=== PATIENT | male | born 1955 | race Caucasian/White ===

== ENCOUNTER 2021-11-17 20:38 | Observation (INO) ==
--- NOTE | 2021-11-17 20:51 | Emergency Department Note ---
History of Present Illness General Chief complaint: Chest Pain Time Seen by Provider: 11/17/21 20:41 Source: patient and EMS Mode of arrival: EMS History of Present Illness Provider complaint: Chest pain Onset (ago): day(s) Location: chest Radiation: non-radiation Severity: moderate Pain Consistency: + intermittent and + now resolved Quality: + other (Pressure) Relieved By: + medication (Nitroglycerin) and + rest Exacerbated By: + other (Exertion) Associated symptoms: + chest pain, + diaphoresis and + shortness of breath; no cough, no fever/chills, no malaise or no nausea/vomiting This is a 65-year-old male with a history of coronary artery disease and status post CABG presenting with chest pain starting 2 days ago. It started when he was carrying firewood into the basement. He started having pressure in the mid dle of his chest. It was associated with shortness of breath and diaphoresis. He rested and his chest pain went away. He states that his pain does not radiate. He has had it intermittently throughout the past 2 days. He states is worse when he exerts himself such as climbing stairs. It is better when he rests. Today he felt lightheaded with the chest pain and called EMS. He did take an aspirin earlier today. EMS gave him 1 sublingual nitroglycerin which resolved his chest pain. He currently feels lightheaded but otherwise has no symptoms. He denies any fever, cough or cold symptoms, abdominal pain, vomiting, diarrhea, urinary symptoms or pain or swelling to the legs. He did have a catheterization approximately 3 weeks ago to be evaluated for aortic valve replacement. He is scheduled for a consultation in [facility] sometime in the future. Home Medications Medication Instructions Recorded Confirmed Type aspirin 81 mg chewable tablet 81 mg PO DAILY 11/04/18 11/17/21 History (Aspirin Childrens) atorvastatin 80 mg tablet (Lipitor) 80 mg PO HS 11/04/18 11/17/21 History fluticasone furoate 100 1 puff INHALATION DAILY 11/04/18 11/17/21 History mcg-vilanterol 25 mcg/dose inhalation powder (Breo Ellipta) insulin glargine 100 unit/mL 30 units SUBCUT HS 11/04/18 11/17/21 History subcutaneous solution (Lantus U-100 Insulin) levothyroxine 75 mcg tablet 75 mcg PO DAILY 11/04/18 11/17/21 History (Synthroid) lisinopril 5 mg tablet (Zestril) 5 mg PO DAILY 11/04/18 11/17/21 History metoprolol succinate 50 mg 50 mg PO DAILY 11/04/18 11/17/21 History tablet,extended release 24 hr (Toprol XL) sildenafil 50 mg tablet 25 mg PO DIRECTED PRN 11/04/18 11/17/21 History empagliflozin 25 mg tablet 25 mg PO DAILY 05/23/21 11/17/21 History (Jardiance) famotidine 20 mg tablet 20 mg PO BID 05/23/21 11/17/21 History metformin 500 mg tablet,extended 1,000 mg PO BID 05/23/21 11/17/21 History release 24 hr Allergies Allergy/AdvReac Type Severity Reaction Status Date / Time aspirin AdvReac Intermediate platelets Verified 11/17/21 21:46 drop fexofenadine [From Karlie] AdvReac Intermediate NOSE BLEEDS Verified 11/17/21 21:46 Past Med/Surg History Medical History CAD (coronary artery disease) CKD (chronic kidney disease), stage III Diabetes mellitus, type II HLD (hyperlipidemia) Hypothyroidism KIMBERLYN (obstructive sleep apnea) PVD (peripheral vascular disease) s/p R femoral stent Tobacco use Surgical History Hx of CABG [facility] [place] [place] [facility] [place] History Other Coronary heart disease Diabetes Social History Smoking Status: Current every day smoker Tobacco Type: Cigarettes Cigarettes Per Day: 20; Hx Alcohol Use: No Hx Substance Use: No Preferred Language: Occitan Communication Ability: Effective Public Health Microbiologist Required: No Beliefs That Will Affect Care: None Current Living Situation: Spouse Feels Safe at Home: Yes Assistive Devices: Denture - Upper, Denture - Lower, Glasses and Hearing Aid - Bilateral Review of Systems See HPI for pertinent positives & negatives. and A total of 10 systems reviewed and were otherwise negative Physical Exam Vital Signs Vital Signs - 24 hr 11/17/21 20:46 11/17/21 20:49 11/17/21 20:50 Temperature Temperature Source Pulse Rate 60 59 L Pulse Rate from SpO2 Sensor 59 L Respiratory Rate 21 13 Respiratory Effort / Characteristics Respiratory Depth Respiratory Pattern Blood Pressure 102/54 L Blood Pressure Mean 70 Pulse Oximetry 94 Oxygen Delivery Method Room Air Sepsis Recent Fever Within 48 Hours Sepsis New/Unexplained Change in Mental Status Sepsis Action Taken by Nursing 11/17/21 20:52 11/17/21 21:00 11/17/21 21:15 Temperature 36.8 C Temperature Source Oral Pulse Rate 58 L 66 59 L Pulse Rate from SpO2 Sensor 66 59 L Respiratory Rate 18 17 16 Respiratory Effort / Characteristics Non-Labored Respiratory Depth Normal Respiratory Pattern Regular Blood Pressure 102/54 L Blood Pressure Mean 70 Pulse Oximetry 96 97 96 Oxygen Delivery Method Room Air Sepsis Recent Fever Within 48 Hours No Sepsis New/Unexplained Change in Mental Status No Sepsis Action Taken by Nursing No Action Required 11/17/21 21:30 11/17/21 21:45 11/17/21 22:00 Temperature Temperature Source Pulse Rate 59 L 57 L 60 Pulse Rate from SpO2 Sensor 59 L 57 L 60 Respiratory Rate 14 20 21 Respiratory Effort / Characteristics Respiratory Depth Respiratory Pattern Blood Pressure Blood Pressure Mean Pulse Oximetry 95 95 98 Oxygen Delivery Method Sepsis Recent Fever Within 48 Hours Sepsis New/Unexplained Change in Mental Status Sepsis Action Taken by Nursing 11/17/21 22:28 11/17/21 22:30 Temperature Temperature Source Pulse Rate 56 L 54 L Pulse Rate from SpO2 Sensor 57 L 54 L Respiratory Rate 14 15 Respiratory Effort / Characteristics Respiratory Depth Respiratory Pattern Blood Pressure 121/65 116/79 Blood Pressure Mean 83 91 Pulse Oximetry 97 93 Oxygen Delivery Method Sepsis Recent Fever Within 48 Hours Sepsis New/Unexplained Change in Mental Status Sepsis Action Taken by Nursing Constitutional: Vital signs reviewed. Eyes: Pupils are equal round reactive to light. Conjunctiva are noninjected. ENT: Pharynx is clear without erythema or exudate. Mucous membranes are moist. Neck supple without meningeal signs. Respiratory: Clear to auscultation bilaterally. Breath sounds are equal bilaterally. Cardiovascular: Regular rate and rhythm. No rubs or gallops. Systolic murmur present. GI: Soft, nondistended and nontender. Bowel sounds are present. Musculoskeletal: No peripheral edema. No lower extremity tenderness. Integumentary: No cyanosis. or jaundice. Neurological: The patient is awake and alert. No focal deficits. Psychiatric: Normal affect. Not anxious appearing. Medical Decision Making Differential Diagnosis Unstable angina, [place], valvular heart disease, GERD, anxiety Medical Records Attestation: I reviewed the patient's medical records. I did perform a limited focused review of portions of the patient's old chart on the electronic medical record. The patient had a cardiac catheterization on October 12 which showed the following:Injections into the jackson right coronary artery reveal it to be functionally occluded in its proximal segment. Injections into the vein graft to the right coronary artery reveal it to be widely patent supplying both antegrade and retrograde flow to the right coronary artery including the posterior lateral branch. Injections into the saphenous vein graft to the first OM reveal it to be widely patent supplying both antegrade and retrograde flow to the first and second marginal branch from the left circumflex artery however at the ostium of the first OM there is a 70% stenoses. Injections into the DANE graft revealed to be widely patent supplying both antegrade and retrograde flow to the jackson LAD as well as diagonal branches. Selective injections into the left coronary artery revealed the left main trunk to be patent. The jackson left circumflex artery is occluded at its origin there is a high-grade stenoses in the proximal portion of the LAD and distally there is competitive flow with the DANE graft. Home Medications Current Medication List: was personally reviewed by me Laboratory Data Attestation: I reviewed the patient's lab results. Result diagrams: 11/17/21 20:50 11/17/21 20:50 Lab Results 11/17/21 11/17/21 11/17/21 Range/Units 20:50 20:50 22:18 WBC 5.53 (4.8-10.8) K/uL RBC 5.59 (4.7-6.1) M/uL Hgb 16.5 (14.0-18.0) g/dL Hct 48.8 (42-52) % MCV 87.3 (80-100) fL MCH 29.5 (25-34) pg MCHC 33.8 (32-36) g/dL RDW Std Deviation 44.6 (36.4-46.3) fL RDW Coeff of [place] 13.8 (11.5-14.5) % Plt Count 91 L (130-400) K/uL MPV 11.2 H (7.4-10.4) fL Immature Gran % (Auto) 0.7 % Neut % (Auto) 50.9 % Lymph % (Auto) 21.2 % [place] % (Auto) 24.8 % Eos % (Auto) 1.3 % Baso % (Auto) 1.1 % Neut # (Auto) 2.82 (1.4-6.5) K/uL Lymph # (Auto) 1.17 L (1.2-3.4) K/uL [place] # (Auto) 1.37 H (0.11-0.59) K/uL Eos # (Auto) 0.07 (0-0.5) K/uL Baso # (Auto) 0.06 (0-0.2) K/uL Immature Gran # (Auto) 0.04 H (0.00-0.02) K/uL Platelet Estimate Decreased L (Normal) Sodium 134 L (136-145) mmol/L Potassium 3.8 (3.5-5.1) mmol/L Chloride 104 (98-107) mmol/L Carbon Dioxide 20 L (21-32) mmol/L Anion Gap 10 (3-11) BUN 19 (6-23) mg/dl Creatinine 1.61 H (0.6-1.4) mg/dl Est Cr Clr Drug Dosing 48.7 ml/min Est GFR ( Amer) 51.2 ml/min Est GFR (Non-Af Amer) 44.2 ml/min BUN/Creatinine Ratio 11.8 (10-20) Glucose 226 H (70-99(Fasting)) mg/dl Calcium 8.4 L (8.5-10.1) mg/dl Total Bilirubin 0.4 (0.2-1.0) mg/dl AST 29 (13-39) U/L ALT 29 (7-52) U/L Alkaline Phosphatase 68 (34-104) U/L Troponin I < 0.03 (0-0.04) ng/ml Total Protein 6.1 (6.0-8.3) gm/dl Albumin 3.6 (3.4-5.0) gm/dl Globulin 2.5 (2.5-4.0) gm/dl Albumin/Globulin Ratio 1.4 (0.9-2) Lipase 139 H (11-82) U/L SARS-CoV-2, RNA, NAAT POSITIVE A* (NEGATIVE) Imaging Data Radiologist's Impression: Chest X-Ray 11/17/21 20:49 XR chest 1V portable CLINICAL HISTORY: Chest Pain. Current smoker COMPARISON STUDY: 11/04/2018 TECHNIQUE: 1 view of the chest FINDINGS: Single frontal view of the chest demonstrates the cardiomediastinal silhouette to be within normal limits. The patient is status post previous cardiothoracic surgery. The lungs are clear of alveolar opacities. There is no evidence for pleural effusion. There is no evidence for vascular congestion. There is no acute osseous pathology. IMPRESSION: No acute cardiopulmonary disease. ACT 112: Negative or not required by law. Electronically signed by: Ted Grewal M.D. 11/17/2021 9:16 PM ECG Data Attestation: I personally reviewed and interpreted this ECG as follows: Indication: + chest pain Rate (beats per minute): 57 Rhythm: + sinus bradycardia ECG [place]: + Left axis deviation ECG ST segments: + T-wave inversions and + Nonspecific ST abnormalities ECG Findings: no PVCs Comparison ECG Date: from (November 04, 2018) Change: the following changes noted (Bradycardia is new. T wave inversions in the high lateral leads were previously present.) MDM Narrative I did evaluate the patient as noted above. Patient is presenting with exert ional chest pressure for the past 2 days. It resolved after he was given nitroglycerin in the ambulance. He did have an aspirin earlier today. I did place an order for continuous cardiac monitoring. The monitor showed sinus bradycardia rate of 58 bpm. I did order and personally review the patient's 12- lead EKG as described above. He has T wave inversions in the high lateral leads which were present on his previous EKG. He has sinus bradycardia today. I did order and personally reviewed the images of the patient's chest x-ray as described above. There is no acute cardiopulmonary process. did order and review the patient's blood work as noted in the electronic medical record. CBC demonstrates no leukocytosis or anemia but he does have thrombocytopenia with a platelet count of 91. Electrolytes demonstrate a sodium of 134 and calcium of 8.4. Glucose is elevated to 26. Troponin is negative. LFTs are unremarkable. Creatinine is slightly elevated at 1.6. A COVID screening test was sent and came back positive. He denies having any symptoms. I did discuss the test results with him. I did recommend hospitalization for repeat cardiac biomarkers and further evaluation. I did discuss the case with the hospitalist and case supervisor. Impression & Plan Chest pain, exertional, Thrombocytopenia, COVID-19, Elevated serum creatinine, Acute hyperglycemia Discharge Plan Visit Data Chief Complaint: Chest Pain ED Provider: Abdullahi Alvarado Discharge Problem: Chest pain, exertional, Thrombocytopenia, COVID-19, Elevated serum creatinine, Acute hyperglycemia Patient Disposition: Being Evaluated by Hospitalist Forms Stand Alone Forms: My [facility] Prescriptions Prescriptions: No Action atorvastatin [Lipitor] 80 mg tablet 80 mg PO HS RF: 0 Lantus U-100 Insulin 100 unit/mL solution 30 units subcut HS RF: 0 sildenafil 50 mg Tablet 25 mg PO DIRECTED PRN (Reason: Erectile Dysfunction) RF: 0 metoprolol succinate [Toprol XL] 50 mg tablet extended release 24 hr 50 mg PO DAILY RF: 0 levothyroxine [Synthroid] 75 mcg tablet 75 mcg PO DAILY RF: 0 aspirin [Aspirin Childrens] 81 mg Tablet,Chewable 81 mg PO DAILY RF: 0 lisinopril [Zestril] 5 mg tablet 5 mg PO DAILY RF: 0 Breo Ellipta 100-25 mcg/dose blister with device 1 puff Inhalation DAILY RF: 0 famotidine 20 mg tablet 20 mg PO BID RF: 0 metformin 500 mg tablet extended release 24 hr 1,000 mg PO BID RF: 0 Jardiance 25 mg tablet 25 mg PO DAILY RF: 0 Referrals Referrals: Mumtaz Quiroz DO [Primary Care Provider] -
[2021-11-17 21:06] LABS: Hematocrit (blood only) 48.8 % (42-52); Hemoglobin 16.5 g/dL (14.0-18.0); Mean Corpuscular Hemoglobin 29.5 pg (25-34); Mean Corpuscular Hgb Conc 33.8 g/dL (32-36); Mean Corpuscular Volume 87.3 fL (80-100); RDW Coefficient of Variation 13.8 % (11.5-14.5); RDW Standard Deviation 44.6 fL (36.4-46.3); Red Blood Count 5.59 M/uL (4.7-6.1); White Blood Count 5.53 K/uL (4.8-10.8)
--- NOTE | 2021-11-17 21:17 | XRay Report ---
XR chest 1V portable CLINICAL HISTORY: Chest Pain. Current smoker COMPARISON STUDY: 11/04/2018 TECHNIQUE: 1 view of the chest FINDINGS: Single frontal view of the chest demonstrates the cardiomediastinal silhouette to be within normal li mits. The patient is status post previous cardiothoracic surgery. The lungs are clear of alveolar opa cities. There is no evidence for pleural effusion. There is no evidence for vascular congestion. Ther e is no acute osseous pathology. IMPRESSION: No acute cardiopulmonary disease. ACT 112: Negative or not required by law. Electronically signed by: Ted Grewal M.D. 11/17/2021 9:16 PM
[2021-11-17 21:27] LABS: Alanine Aminotransferase 29 U/L (7-52); Albumin Globulin Ratio 1.4 (0.9-2); Albumin Level 3.6 gm/dl (3.4-5.0); Alkaline Phosphatase 68 U/L (34-104); Anion Gap 10 (3-11); Aspartate Aminotransferase 29 U/L (13-39); BUN Creatinine Ratio 11.8 (10-20); Bilirubin,Total 0.4 mg/dl (0.2-1.0); Blood Urea Nitrogen 19 mg/dl (6-23); Calcium 8.4 mg/dl (8.5-10.1); Carbon Dioxide 20 mmol/L (21-32); Chloride 104 mmol/L (98-107); Creatinine Clr Calc Pharmacy 48.7 ml/min; Est GFR (African American) 51.2 ml/min; Est GFR (Non-African American) 44.2 ml/min; Globulin 2.5 gm/dl (2.5-4.0); Glucose 226 mg/dl (70-99(Fasting)); Lipase 139 U/L (11-82); Mean Platelet Volume 11.2 fL (7.4-10.4); Platelet Count 91 K/uL (130-400); Potassium 3.8 mmol/L (3.5-5.1); Sodium 134 mmol/L (136-145); Total Protein 6.1 gm/dl (6.0-8.3)
[2021-11-17 21:29] LABS: Troponin I < 0.03 ng/ml (0-0.04)
[2021-11-17 22:20] LABS: Basophils # (auto) 0.06 K/uL (0-0.2); Basophils % (auto) 1.1 %; Eosinophils # (auto) 0.07 K/uL (0-0.5); Eosinophils % (auto) 1.3 %; Immature Granulocytes # (auto) 0.04 K/uL (0.00-0.02); Immature Granulocytes % (auto) 0.7 %; Lymphocytes # (auto) 1.17 K/uL (1.2-3.4); Lymphocytes % (auto) 21.2 %; Monocytes # (auto) 1.37 K/uL (0.11-0.59); Monocytes % (auto) 24.8 %; Neutrophils # (auto) 2.82 K/uL (1.4-6.5); Neutrophils % (auto) 50.9 %; Platelet Estimate Decreased (Normal)
[2021-11-17] MEDS ORDERED: INSULIN GLARGINE SOLOSTAR 100 UNITS/ML 3 ML PEN SC STA (23:43)
--- NOTE | 2021-11-18 01:20 | History and Physical Report ---
DATE OF ADMISSION: 11/17/2021. CHIEF COMPLAINT: Chest pain. HISTORY OF PRESENT ILLNESS: This is a 65-year-old male with past medical history significant for type 2 diabetes, hyperlipidemia, hypothyroidism, chronic nonspecific lung disease, history of sleep apnea, CAD, peripheral artery disease, severe aortic valve stenosis, chronic kidney disease stage III, history of secondary thrombocytopenia, history of tobacco abuse, history of CAD, status post CABG, presents with chest pain. The patient says he was lifting some firewood to his basement yesterday and then after that he had chest pain for half an hour. Then, today again he is having on and off chest pain and shortness of breath with exertion. He says he thinks he might have had some fever yesterday, that is broke. Denies any cough, no headache, no blurred visions, no earache, no runny nose, no sore throat, no nausea, no abdominal pain. Appetite is okay. Normal bowel and bladder movements. Resting comfortably and hemodynamically stable. Currently, no chest pain. The patient recently on 10/12/2021 had a cardiac catheterization for a plan for aortic valve surgery. At that time, cardiac cath showed severe bicuspid symptomatic aortic stenosis and cardiac catheterization showed patent SMITH to LAD and patent SVG to OM and patent SVG to RCA. There is plan for CAT scan coming week for surgery risk factor stratification. The patient is now currently in the ER, found to be COVID positive. The patient is not COVID vaccinated. ALLERGIES: ASPIRIN, FEXOFENADINE. PAST MEDICAL HISTORY: As mentioned above. PAST SURGICAL HISTORY: CABG, carpal tunnel syndrome, cardiac catheterization. MEDICATIONS: The patient is on aspirin 81 mg p.o. daily, atorvastatin 80 mg p.o. at bedtime, Breo Ellipta 1 puff inhalation daily, famotidine 20 mg p.o. b.i.d., Jardiance 25 mg p.o. daily, Lantus 30 units subcutaneous at bedtime, levothyroxine 75 mcg p.o. daily, lisinopril 5 mg p.o. daily, metformin 1000 mg p.o. b.i.d., metoprolol succinate 50 mg p.o. daily, Viagra as directed. FAMILY HISTORY: Significant for brother has allergies; father has Parkinson's disease, diabetes, CHF, CABG; mother has asthma, diabetes. SOCIAL HISTORY: , smokes 1.5 packs a day. Drinks alcohol. No drug use. REVIEW OF SYSTEMS: As per HPI. Rest of the review of systems is negative. PHYSICAL EXAMINATION: GENERAL: The patient is of moderate build, not in acute distress. VITAL SIGNS: Temperature 36.8, pulse 54, respiratory rate 15, blood pressure 116/79, oxygen 93% on room air. HEENT: Pupils equal, round and reactive to light. Oral mucosa moist. NECK: No JVD, no neck masses. CARDIOVASCULAR: S1 and S2 heard. Regular rate and rhythm. There is an ejection systolic murmur in the aortic area. RESPIRATORY SYSTEM: Normal AP diameter. No accessory muscle use. No wheezing, no crackles. ABDOMEN: Soft, bowel sounds present, nontender, no distention. CENTRAL NERVOUS SYSTEM: Cranial nerves II-XII grossly intact, nonfocal. EXTREMITIES: No edema, no erythema. LABORATORY DATA: WBC 5.5, hemoglobin 16.5, hematocrit 48.8, platelets 91. Sodium 134, potassium 3.8, chloride 104, bicarbonate 20, BUN 19, creatinine 1.6, serum glucose 226, calcium 8.4, total bilirubin 0.4, AST 29, ALT 29, alkaline phosphatase 68. Troponin I less than 0.03. Lipase 139. SARS-CoV-2 ____ positive. IMAGING DATA: Chest x-ray, no acute findings. EKG: Sinus bradycardia at a rate of 57, T-wave inversion in lateral leads. ASSESSMENT AND PLAN: This is a 65-year-old male who presents with chest pain. 1. Chest pain: Rule out acute coronary syndrome. Initial workup is negative. The patient has history of coronary artery disease, status post coronary artery bypass grafting. Recent cardiac catheterization was patent SMITH and SVG. Follow serial enzymes, echo as per Cardiology. N.p.o. after midnight. Monitor in the [employer] tele. 2. COVID positive: Currently asymptomatic. We will monitor. 3. History of diabetes: Hold his home Jardiance and metformin. Continue Lantus 30 units at bedtime from tomorrow. Will give [address] on insulin sliding scale. Follow the blood sugars. Follow HbA1c levels. 4. History of hypertension: Continue his lisinopril and metoprolol. Will monitor the blood pressure. 5. Hyperlipidemia: Continue statin. 6. Chronic kidney disease stage III: Baseline creatinine from 1.4 to 1.5, presently with creatinine of 1.6. Will follow the repeat labs in the a.m. 7. Thrombocytopenia.follow labs. needs followup 7. Deep venous thrombosis prophylaxis: Lovenox.To hold lovenox if platelets drop. DISPOSITION: Closely monitor in the med tele. PT/OT prior to discharge. Social service to help with discharge planning. Job ID: [id number]
[2021-11-18] MEDS ORDERED: NITROGLYCERIN SL 0.4 MG/TAB TAB SL PRN (02:42)
[2021-11-18] MEDS ORDERED: POLYETHYLENE (MIRALAX) 17 GM PACK PO PRN (02:42)
[2021-11-18] MEDS ORDERED: GLUCOSE 40% GEL 15 GM TUBE PO PRN (03:00)
[2021-11-18] MEDS ORDERED: DEXTROSE 50% 50 ML SYRINGE IV PRN (03:00)
[2021-11-18] MEDS ORDERED: GLUCOSE 10 TABS/TUBE PO PRN (03:00)
[2021-11-18] MEDS ORDERED: GLUCAGON FOR INJ 1 MG VIAL IM PRN (03:00)
[2021-11-18] MEDS ORDERED: CARBOHYDRATES FOR HYPOGLYCEMIA PO PRN (03:00)
[2021-11-18 04:43] LABS: Hematocrit (blood only) 50.8 % (42-52); Mean Corpuscular Hemoglobin 29.6 pg (25-34); Mean Corpuscular Hgb Conc 33.5 g/dL (32-36); Mean Corpuscular Volume 88.3 fL (80-100); RDW Coefficient of Variation 13.9 % (11.5-14.5); RDW Standard Deviation 45.5 fL (36.4-46.3); Red Blood Count 5.75 M/uL (4.7-6.1); White Blood Count 5.04 K/uL (4.8-10.8)
[2021-11-18 04:56] LABS: Mean Platelet Volume 10.7 fL (7.4-10.4); Platelet Count 74 K/uL (130-400)
[2021-11-18 05:08] LABS: Troponin I < 0.03 ng/ml (0-0.04)
[2021-11-18 05:09] LABS: Anion Gap 8 (3-11); BUN Creatinine Ratio 11.5 (10-20); Blood Urea Nitrogen 19 mg/dl (6-23); Calcium 8.6 mg/dl (8.5-10.1); Carbon Dioxide 24 mmol/L (21-32); Chloride 106 mmol/L (98-107); Creatinine Clr Calc Pharmacy 47.5 ml/min; Est GFR (African American) 49.7 ml/min; Est GFR (Non-African American) 42.9 ml/min; Glucose 144 mg/dl (70-99(Fasting)); Magnesium 1.7 mg/dl (1.7-2.4); Potassium 4.2 mmol/L (3.5-5.1); Sodium 138 mmol/L (136-145)
[2021-11-18 05:24] LABS: Basophils # (auto) 0.04 K/uL (0-0.2); Basophils % (auto) 0.8 %; Eosinophils # (auto) 0.11 K/uL (0-0.5); Eosinophils % (auto) 2.2 %; Immature Granulocytes # (auto) 0.03 K/uL (0.00-0.02); Immature Granulocytes % (auto) 0.6 %; Lymphocytes # (auto) 1.72 K/uL (1.2-3.4); Lymphocytes % (auto) 34.1 %; Monocytes # (auto) 0.39 K/uL (0.11-0.59); Monocytes % (auto) 7.7 %; Neutrophils # (auto) 2.75 K/uL (1.4-6.5); Neutrophils % (auto) 54.6 %
[2021-11-18] MEDS: ACETAMINOPHEN 325 MG TAB PO PRN ×2 (05:42→20:47)
[2021-11-18 07:59] LABS: Estimated Average Glucose 169 mg/dl; Hemoglobin A1C 7.5 % (4.5-5.6)
[2021-11-18] MEDS: LEVOTHYROXINE SODIUM 75 MCG TABLET PO SCH (08:06)
[2021-11-18] MEDS: METOPROLOL SUCC 50MG EXT REL TAB PO SCH (08:08)
[2021-11-18] MEDS: FAMOTIDINE 20 MG TAB PO SCH ×2 (08:08→20:14)
[2021-11-18] MEDS: ENOXAPARIN INJ 40 MG/0.4 ML SYR SQ SCH (08:09)
[2021-11-18] MEDS: ASPIRIN 81 MG CHEW PO SCH (08:09)
[2021-11-18] MEDS: FLUTICASONE/VILANTEROL 100/25MCG 14 PUFFS/INHALER INH SCH (08:12)
[2021-11-18] MEDS: lisinopril 5 MG TAB PO SCH (08:12)
[2021-11-18] MEDS: INSULIN ASPART PER UNIT SC SCH ×4 (08:40→20:13)
--- NOTE | 2021-11-18 11:08 | Cardiology Consultation ---
Date of Consultation November 18, 2021 Assessment & Plan (1) Symptomatic severe aortic stenosis with normal ejection fraction: (2) Hx of CABG: (3) PVD (peripheral vascular disease): (4) COVID-19: (5) Thrombocytopenia: (6) CKD (chronic kidney disease), stage III: 65-year-old patient admitted with exertional and resting chest discomfort consistent with angina. Recent cardiac catheterization demonstrates patent bypass grafting and troponins are negative. Symptoms likely secondary to severe symptomatic aortic valve stenosis. Patient diagnosed with COVID-19 which complicates the situation. His x-ray does not demonstrate any evidence of pneumonia and oxygen saturation is 98% on room air. I feel his symptoms are more likely related to his aortic valve disease. Given acceleration/change in symptoms with associated lightheadedness/near syncope, I am concerned his valve replacement/TAVR will need to be expedited. I have placed a call out to the lockstitch topstitcher at [facility] in [place] to discuss transfer. History of Present Illness Reason for Consultation: Chest pain, severe aortic stenosis Requesting Physician: Dr. Delcid Attending Physician: Hamida Delcid MD History of Present Illness 65-year-old patient with history of coronary artery disease status post coronary artery bypass grafting and severe symptomatic aortic stenosis presented to the emergency department with chest discomfort. Patient reports carrying firewood yesterday with induction of chest pain and shortness of breath. Discomfort lasted nearly 1 hour and slowly subsided. He did not use any sublingual nitroglycerin. Since that event he notes exertional chest pressure and shortness of breath. States "I feel like I ran a marathon". Admits to lightheadedness without overt syncope associated with exertion. No orthopnea, PND, or lower extremity edema. Currently resting comfortably, asymptomatic. Voices concern regarding progression of his underlying valvular heart disease. COVID testing on admission is positive. X-ray without evidence of vascular congestion or pneumonia. Cardiac enzymes undetectable. Allergies Allergy/AdvReac Type Severity Reaction Status Date / Time aspirin AdvReac Intermediate platelets Verified 11/17/21 21:46 drop fexofenadine [From Karlie] AdvReac Intermediate NOSE BLEEDS Verified 11/17/21 21:46 Home Medications Medication Instructions Recorded Confirmed Type aspirin 81 mg chewable tablet 81 mg PO DAILY 11/04/18 11/17/21 History (Aspirin Childrens) atorvastatin 80 mg tablet (Lipitor) 80 mg PO HS 11/04/18 11/17/21 History fluticasone furoate 100 1 puff INHALATION DAILY 11/04/18 11/17/21 History mcg-vilanterol 25 mcg/dose inhalation powder (Breo Ellipta) insulin glargine 100 unit/mL 30 units SUBCUT HS 11/04/18 11/17/21 History subcutaneous solution (Lantus U-100 Insulin) levothyroxine 75 mcg tablet 75 mcg PO DAILY 11/04/18 11/17/21 History (Synthroid) lisinopril 5 mg tablet (Zestril) 5 mg PO DAILY 11/04/18 11/17/21 History metoprolol succinate 50 mg 50 mg PO DAILY 11/04/18 11/17/21 History tablet,extended release 24 hr (Toprol XL) sildenafil 50 mg tablet 25 mg PO DIRECTED PRN 11/04/18 11/17/21 History empagliflozin 25 mg tablet 25 mg PO DAILY 05/23/21 11/17/21 History (Jardiance) famotidine 20 mg tablet 20 mg PO BID 05/23/21 11/17/21 History metformin 500 mg tablet,extended 1,000 mg PO BID 05/23/21 11/17/21 History release 24 hr Patient History Medical History CAD (coronary artery disease) CKD (chronic kidney disease), stage III Diabetes mellitus, type II HLD (hyperlipidemia) Hypothyroidism KIMBERLYN (obstructive sleep apnea) PVD (peripheral vascular disease) s/p R femoral stent Tobacco use Surgical History Hx of CABG [facility] [place] Family History Other Coronary heart disease Diabetes Social History Smoking Status: Current every day smoker Tobacco Type: Cigarettes Cigarettes Per Day: 1ppd; Do You Dip or Chew Tobacco: No; Hx Alcohol Use: No Hx Substance Use: No Preferred Language: Nicaraguan Communication Ability: Effective Distilling Department Supervisor Required: No Beliefs That Will Affect Care: None marital status: Current Living Situation: Spouse Other Information That Helps Us Care for You: No Feels Safe at Home: Yes Safety Concerns: Feels Safe At This Time Assistive Devices: None Review of Systems Review of Systems: All systems reviewed & are unremarkable except as noted in Subjective Physical Exam Constitutional: well nourished; no acute distress and not ill appearing Respiratory: normal respiratory effort; no respiratory distress, no labored breathing and no retractions Auscultation: no crackles, no rales, no rhonchi and no wheezes Cardiovascular: Rate/Rhythm: regular rate and regular rhythm Heart Sounds: normal S1 and + murmur (3/6 late peaking high-pitched systolic ejection murmur); + abnormal S2 (Diminished) Vessels: no JVD and no carotid bruit Extremities: no edema Gastrointestinal (Abdomen): Inspection/Auscultation: abdomen normal to inspection and normal bowel sounds; abdomen not distended Percussion/Palpation: abdomen soft; abdomen nontender, no guarding and abdomen not rigid Neurologic: CN's II-XI intact bilaterally and moves all extremities; no focal motor deficits Motor/Sensory: no tremor Psychiatric: A+Ox3, euthymic affect Results & Data ([facility]) Vital Signs (Past 12 Hours) Vital Signs Pulse Pulse Resp BP Pulse Ox 11/18/21 05:43 77 18 98 11/18/21 02:00 69 17 95 11/18/21 01:45 67 17 96 11/18/21 01:30 64 18 97 11/18/21 01:20 85 11/18/21 01:00 62 15 134/64 98 11/18/21 00:45 59 L 16 99 11/18/21 00:30 60 15 154/77 H 98 11/18/21 00:15 62 11 L 98 11/18/21 00:00 61 13 137/82 97 11/17/21 23:45 58 L 14 98 11/17/21 23:30 60 16 130/70 96 11/17/21 23:15 59 L 15 96 Diagnostic Findings 2D echocardiogram report summary 08/23/2021: The LV wall thickness is mildly increased (concentric). The left ventricular wall motion is normal. The qualitative LV ejection fraction is 55-59% (normal). The left atrium is mildly enlarged. The left ventricular diastolic function is moderately abnormal (grade II). The aortic valve is possibly bicuspid. The aortic valve is severely calcified. Severe aortic valve stenosis is present. The peak continues wave Doppler velocity= 4.2 meters/second, mean aortic valve gradient 43 mm Hg, calculated aortic valve area= 0.7 cm2. Mild aortic valve regurgitation is present. The aortic root and proximal ascending aorta are normal sized. Compared to the prior study dated 09/03/2020, the aortic valve stenosis has progressed. Severe aortic stenosis is now present by both 2D appearance and Doppler criteria. Cardiac catheterization report summary 10/12/2021: Hemodynamic data: Right atrial pressure mean of 5 mmHg Right ventricular pressure 27 over 7 mmHg PA pressure 26 over 9 mmHg Pulmonary capillary wedge pressure mean 7 mmHg Central aortic pressure 154/75 mmHg Left ventricular pressure 188/25 mmHg PA saturation 75% Central aortic saturation 96% Cardiac output by David equation 5.4 L/min Cardiac output by thermal dilution 3.73 L/min Mean gradient across aortic valve 48.89 mmHg The aortic valve area index is 0.28 cm/m Estimated aortic valve area 0.58 cm Summary: The patient has severe aortic stenosis with a valve area estimated to be 0.58 cm and a mean gradient across aortic valve of 48.89 mmHg. LV function is normal. The aortic root and ascending aorta have normal morphology and diameter. The patient's DANE graft, saphenous vein graft to the right coronary artery and saphenous vein graft to the OM are all widely patent. He has severe [place] coronary artery disease with a functionally occluded right coronary artery proximally and an occluded left circumflex artery at its origin. The LAD has severe proximal disease with competitive flow from the DANE graft.
--- NOTE | 2021-11-18 11:56 | Hospitalist Progress Note ---
Date of Service November 18, 2021 Assessment & Plan (1) Symptomatic severe aortic stenosis with normal ejection fraction: (2) Chest pain, exertional: Plan: Chest pain currently resolved Likely related to severe Discussed with Video Coordinator. Dr Mccormack. He will discuss with Grease Renderer at [facility] (3) COVID-19: Plan: +COVID test Does not appear symptomatic at this time No acute findings on XR On room air. Has chronic cough from smoking No need for COVID specific therapies (4) CKD (chronic kidney disease), stage III: Plan: Baseline 1.4-1.5 Cr at 1.6 Monitor (5) Tobacco use: Plan: Counselled extensively on smoking cessation Nicotine patch ordered (6) Diabetes mellitus, type II: Plan: A1c is 7.5 Holding home oral antidiabetics Continue insulin sq per protocol (7) Hx of CABG: (8) PVD (peripheral vascular disease): (9) CAD (coronary artery disease): Plan: Continue aspirin, atorvastatin DVT ppx- lovenox sq Admission and Anticipated Discharge Date Admission Date: November 17, 2021 Subjective Patient seen and examined Patient currently denies chest pain, SOB, dizziness Reported last episode was yesterday prior to presentation associated with FONSECA, exertional chest pressure and some dizziness. Denied orthopnea, PND Reports chronic dry cough from smoking unchanged. Denied fevers, chills, nausea, vomiting, sore throat, congestion, abd pain, diarrhea Denied dysuria, freq, urgency Physical Exam Constitutional: + well hydrated; no acute distress Eyes: PERRL, conjunctivae normal, anicteric sclerae ENMT: external ear and nose normal, oropharynx normal Respiratory: normal respiratory effort, lungs clear to auscultation Cardiovascular: RRR, S1 S2, systolic ejection murmur Gastrointestinal (Abdomen): normal bowel sounds, soft, nontender, no hepatosplenomegaly Musculoskeletal: no cyanosis or clubbing, extremities motor strength 5/5 Neurologic: PERRL, EOMI, accommodation nl, no face palsy, no dysarthria Psychiatric: A+Ox3, euthymic affect Results & Data Results & Data ([facility]) Vital Signs (Past 12 Hours) Vital Signs Pulse Pulse Resp BP Pulse Ox 11/18/21 05:43 77 18 98 11/18/21 02:00 69 17 95 11/18/21 01:45 67 17 96 11/18/21 01:30 64 18 97 11/18/21 01:20 85 11/18/21 01:00 62 15 134/64 98 11/18/21 00:45 59 L 16 99 11/18/21 00:30 60 15 154/77 H 98 11/18/21 00:15 62 11 L 98 11/18/21 00:00 61 13 137/82 97 Laboratory Results Abnormal lab results 11/17/21 11/17/21 11/17/21 Range/Units 20:50 20:50 22:18 Plt Count 91 L (130-400) K/uL MPV 11.2 H (7.4-10.4) fL Lymph # (Auto) 1.17 L (1.2-3.4) K/uL [place] # (Auto) 1.37 H (0.11-0.59) K/uL Immature Gran # (Auto) 0.04 H (0.00-0.02) K/uL Platelet Estimate Decreased L (Normal) Sodium 134 L (136-145) mmol/L Carbon Dioxide 20 L (21-32) mmol/L Creatinine 1.61 H (0.6-1.4) mg/dl Glucose 226 H (70-99(Fasting)) mg/dl POC Glucose (70-99) mg/dl Hemoglobin A1c (4.5-5.6) % Calcium 8.4 L (8.5-10.1) mg/dl Lipase 139 H (11-82) U/L SARS-CoV-2, RNA, NAAT POSITIVE A* (NEGATIVE) 11/18/21 11/18/21 11/18/21 Range/Units 04:30 04:30 04:30 Plt Count 74 L (130-400) K/uL MPV 10.7 H (7.4-10.4) fL Lymph # (Auto) (1.2-3.4) K/uL [place] # (Auto) (0.11-0.59) K/uL Immature Gran # (Auto) 0.03 H (0.00-0.02) K/uL Platelet Estimate (Normal) Sodium (136-145) mmol/L Carbon Dioxide (21-32) mmol/L Creatinine 1.65 H (0.6-1.4) mg/dl Glucose 144 H (70-99(Fasting)) mg/dl POC Glucose (70-99) mg/dl Hemoglobin A1c 7.5 H (4.5-5.6) % Calcium (8.5-10.1) mg/dl Lipase (11-82) U/L SARS-CoV-2, RNA, NAAT (NEGATIVE) 11/18/21 11/18/21 Range/Units 08:15 11:59 Plt Count (130-400) K/uL MPV (7.4-10.4) fL Lymph # (Auto) (1.2-3.4) K/uL [place] # (Auto) (0.11-0.59) K/uL Immature Gran # (Auto) (0.00-0.02) K/uL Platelet Estimate (Normal) Sodium (136-145) mmol/L Carbon Dioxide (21-32) mmol/L Creatinine (0.6-1.4) mg/dl Glucose (70-99(Fasting)) mg/dl POC Glucose 112 H 105 H (70-99) mg/dl Hemoglobin A1c (4.5-5.6) % Calcium (8.5-10.1) mg/dl Lipase (11-82) U/L SARS-CoV-2, RNA, NAAT (NEGATIVE)
[2021-11-18] MEDS: NICOTINE 21 MG/24 HR TDSY TD SCH (13:26)
--- NOTE | 2021-11-18 15:42 | Discharge Summary ---
Date of Service November 18, 2021 Discharge Data Allergies Allergy/AdvReac Type Severity Reaction Status Date / Time aspirin AdvReac Intermediate platelets Verified 11/17/21 21:46 drop fexofenadine [From Karlie] AdvReac Intermediate NOSE BLEEDS Verified 11/17/21 21:46 Consultations 11/18/21 08:00 Consult Cardiology Routine Discharge Plan Discharge Items Patient Disposition: Transfer Acute Care Hospital Reason For Visit: CHEST PAIN Discharge Diagnosis: Chest pain Symptomatic severe aortic stenosis Activity: Resume your previous activity Non-emergency contact: Primary Care Provider and Dish Room Worker Call non-emergency contact if: you have any medication questions and your symptoms worsen Follow-up/Referrals: Mumtaz Quiroz DO [Primary Care Provider] - Diet: Carb Consistent or DM2 and Heart Healthy Addtl Attending Provider Instructions: Mr Hutchins. You came to the hospital for exertional chest pressure and shortness of breath. You were evaluated. This was deemed to be due to your severe aortic stenosis. You are being transferred to [facility] for sales engineer engineered products evaluation and management. You were also found to be positive for COVID 19 infection. It is important to quit smoking as we discussed. It was a pleasure taking care of you. Pending Studies at Discharge: No Stand-Alone Forms: [facility] Skilled Items Patient informed of condition?: Yes DNR: No Discharge Level of Care: Other Communicable Disease: No Discharge Prognosis: Stable Lines: Peripheral IV Urinary Catheter: No Medications and DC Order Prescriptions: Continued atorvastatin [Lipitor] 80 mg tablet 80 mg PO HS RF: 0 Lantus U-100 Insulin 100 unit/mL solution 30 units subcut HS RF: 0 sildenafil 50 mg Tablet 25 mg PO DIRECTED PRN (Reason: Erectile Dysfunction) RF: 0 metoprolol succinate [Toprol XL] 50 mg tablet extended release 24 hr 50 mg PO DAILY RF: 0 levothyroxine [Synthroid] 75 mcg tablet 75 mcg PO DAILY RF: 0 aspirin [Aspirin Childrens] 81 mg Tablet,Chewable 81 mg PO DAILY RF: 0 lisinopril [Zestril] 5 mg tablet 5 mg PO DAILY RF: 0 Breo Ellipta 100-25 mcg/dose blister with device 1 puff Inhalation DAILY RF: 0 famotidine 20 mg tablet 20 mg PO BID RF: 0 metformin 500 mg tablet extended release 24 hr 1,000 mg PO BID RF: 0 Jardiance 25 mg tablet 25 mg PO DAILY RF: 0 Discharge Orders: Discharge Order (Routine); Ordered 11/18/21 Ordered By: Hamida Eldridge/Other Patient Handouts: Managing Type 2 Diabetes Admission Data Admit Date/Time: 11/17/21 23:43 Attending Provider: Hamida Delcid I. Admit Provider: Dada Vargas Primary Care Provider: Mumtaz Quiroz Other Providers: Joe Hood
[2021-11-18] MEDS: ATORVASTATIN 40 MG TAB PO SCH (20:14)
[2021-11-18] MEDS: INSULIN GLARGINE SOLOSTAR 100 UNITS/ML 3 ML PEN SQ SCH (20:14)
[2021-11-19] MEDS: ACETAMINOPHEN 325 MG TAB PO PRN (05:39)
[2021-11-19] MEDS: LEVOTHYROXINE SODIUM 75 MCG TABLET PO SCH (05:40)
--- NOTE | 2021-11-19 06:02 | Electrocardiogram Report ---
Test Reason : Blood Pressure : / mmHG Vent. Rate : 057 BPM Atrial Rate : 057 BPM P-R Int : 178 ms QRS Dur : 086 ms QT Int : 428 ms P-R-T Axes : 052 -60 145 degrees QTc Int : 416 ms Sinus bradycardia Left axis deviation Abnormal ECG When compared with ECG of 04-NOV-2018 16:27, T wave inversion more evident in Lateral leads Confirmed by Iron Antonio ([id number]) on 11/19/2021 6:01:34 AM Referred By: REFERRED SELF Confirmed By:Iron Antonio
--- NOTE | 2021-11-19 06:30 | Electrocardiogram Report ---
Test Reason : Blood Pressure : / mmHG Vent. Rate : 059 BPM Atrial Rate : 059 BPM P-R Int : 196 ms QRS Dur : 084 ms QT Int : 424 ms P-R-T Axes : 016 -59 143 degrees QTc Int : 419 ms Sinus bradycardia Left axis deviation Abnormal ECG When compared with ECG of 17-NOV-2021 20:45, No significant change was found Confirmed by Iron Antonio ([id number]) on 11/19/2021 6:29:38 AM Referred By: REFERRED SELF Confirmed By:Iron Antonio
[2021-11-19 06:59] LABS: BUN Creatinine Ratio 18.3 (10-20); Calcium 8.3 mg/dl (8.5-10.1); Creatinine Clr Calc Pharmacy 55.2 ml/min; Est GFR (African American) 59.6 ml/min; Est GFR (Non-African American) 51.5 ml/min; Potassium 4.4 mmol/L (3.5-5.1)
[2021-11-19] MEDS: INSULIN ASPART PER UNIT SC SCH ×4 (09:00→20:20)
[2021-11-19] MEDS: lisinopril 5 MG TAB PO SCH (09:06)
[2021-11-19] MEDS: FAMOTIDINE 20 MG TAB PO SCH ×2 (09:06→20:19)
[2021-11-19] MEDS: METOPROLOL SUCC 50MG EXT REL TAB PO SCH (09:09)
[2021-11-19] MEDS: ASPIRIN 81 MG CHEW PO SCH (09:09)
[2021-11-19] MEDS: ENOXAPARIN INJ 40 MG/0.4 ML SYR SQ SCH ×2 (09:10→09:17)
[2021-11-19] MEDS: FLUTICASONE/VILANTEROL 100/25MCG 14 PUFFS/INHALER INH SCH ×2 (09:11→09:12)
[2021-11-19] MEDS: NICOTINE 21 MG/24 HR TDSY TD SCH (09:11)
--- NOTE | 2021-11-19 11:16 | Hospitalist Progress Note ---
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 No need for COVID specific therapies (4) CKD (chronic kidney disease), stage III: Plan: Baseline 1.4-1.5 Cr at 1.42 Monitor (5) Tobacco use: Plan: Counselled extensively on smoking cessation Nicotine patch (6) Diabetes mellitus, type II: Plan: A1c is 7.5 Holding home oral antidiabetics Continue insulin sq per protocol (7) Hx of CABG: (8) PVD (peripheral vascular disease): (9) CAD (coronary artery disease): Plan: Continue aspirin, atorvastatin DVT ppx- lovenox sq Admission and Anticipated Discharge Date Admission Date: November 17, 2021 Subjective Patient seen and examined Patient has no complaints Review of Systems Review of Systems: All systems reviewed & are unremarkable except as noted in Subjective Physical Exam Constitutional: + well hydrated; no acute distress Eyes: PERRL, conjunctivae normal, anicteric sclerae ENMT: external ear and nose normal, oropharynx normal Respiratory: normal respiratory effort, lungs clear to auscultation Cardiovascular: Rate/Rhythm: regular rate and regular rhythm S1 S2. Systolic ejection murmur Gastrointestinal (Abdomen): normal bowel sounds, soft, nontender, no hepatosplenomegaly Musculoskeletal: no cyanosis or clubbing, extremities motor strength 5/5 Neurologic: PERRL, EOMI, accommodation nl, no face palsy, no dysarthria Psychiatric: A+Ox3, euthymic affect Results & Data Results & Data ([facility]) Vital Signs (Past 12 Hours) Vital Signs Temp Pulse Pulse Resp BP Pulse Ox 11/19/21 11:12 36.6 C 56 L 18 146/75 H 98 11/19/21 08:02 36.9 C 54 L 20 94/60 L 96 11/19/21 03:18 36.6 C 54 L 18 129/75 96 11/19/21 00:24 61 11/18/21 23:51 37.4 C 62 18 99/56 L 95 Laboratory Results Abnormal lab results 11/18/21 11/18/21 11/19/21 Range/Units 16:39 19:49 05:35 BUN 26 H (6-23) mg/dl Creatinine 1.42 H (0.6-1.4) mg/dl Glucose 179 H (70-99(Fasting)) mg/dl POC Glucose 120 H 172 H (70-99) mg/dl Calcium 8.3 L (8.5-10.1) mg/dl 11/19/21 11/19/21 Range/Units 07:44 12:00 BUN (6-23) mg/dl Creatinine (0.6-1.4) mg/dl Glucose (70-99(Fasting)) mg/dl POC Glucose 152 H 299 H (70-99) mg/dl Calcium (8.5-10.1) mg/dl
--- NOTE | 2021-11-19 11:30 | Cardiology Progress Note ---
Date of Service November 19, 2021 Assessment & Plan (1) Symptomatic severe aortic stenosis with normal ejection fraction: (2) Hx of CABG: (3) PVD (peripheral vascular disease): (4) COVID-19: (5) Thrombocytopenia: (6) CKD (chronic kidney disease), stage III: Plan: Case discussed with interventional cardiology service at [facility] in [place]. Patient is accepted for transfer. Awaiting bed availability. Surgical versus transcutaneous aortic valve replacement options discussed. All questions answered to patient's satisfaction. Continue current cardiovascular medications. Patient oxygen saturation is 98% on room air without cough. No obvious symptoms attributed to COVID-19 infection. Continue supportive care. Admission and Anticipated Discharge Date Admission Date: November 17, 2021 Subjective Patient seen examined the bedside. Feeling well overnight. Notes dyspnea with minimal exertion. No recurrent chest discomfort. Telemetry reveals sinus rhythm. Denies orthopnea, PND, or lower extremity edema. No palpitations, lightheadedness, or dizziness. Review of Systems Review of Systems: All systems reviewed & are unremarkable except as noted in Subjective Physical Exam Constitutional: well nourished; no acute distress and not ill appearing Respiratory: normal respiratory effort; no respiratory distress, no labored breathing and no retractions Auscultation: no crackles, no rales, no rhonchi and no wheezes Cardiovascular: Rate/Rhythm: regular rate and regular rhythm Heart Sounds: normal S1 and + murmur (3/6 late peaking high-pitched systolic ejection murmur); + abnormal S2 (Diminished) Vessels: no JVD and no carotid bruit Extremities: no edema Gastrointestinal (Abdomen): Inspection/Auscultation: abdomen normal to inspection and normal bowel sounds; abdomen not distended Percussion/Palpation: abdomen soft; abdomen nontender, no guarding and abdomen not rigid Neurologic: CN's II-XI intact bilaterally and moves all extremities; no focal motor deficits Motor/Sensory: no tremor Psychiatric: A+Ox3, euthymic affect Results & Data ([facility]) Vital Signs (Past 12 Hours) Vital Signs Temp Pulse Pulse Resp BP Pulse Ox 11/19/21 11:12 36.6 C 56 L 18 146/75 H 98 11/19/21 08:02 36.9 C 54 L 20 94/60 L 96 11/19/21 08:00 59 L 11/19/21 03:18 36.6 C 54 L 18 129/75 96 11/19/21 00:24 61 11/18/21 23:51 37.4 C 62 18 99/56 L 95
--- NOTE | 2021-11-19 15:28 | Electrocardiogram Report ---
Test Reason : Blood Pressure : / mmHG Vent. Rate : 050 BPM Atrial Rate : 050 BPM P-R Int : 174 ms QRS Dur : 086 ms QT Int : 458 ms P-R-T Axes : 034 -55 123 degrees QTc Int : 417 ms Sinus bradycardia Left axis deviation Abnormal ECG When compared with ECG of 18-NOV-2021 08:32, No significant change was found Confirmed by Iron Antonio ([id number]) on 11/19/2021 3:28:18 PM Referred By: REFERRED SELF Confirmed By:Iron Antonio
[2021-11-19] MEDS ORDERED: LOPERAMIDE HCL 2 MG CAP PO PRN (18:15)
[2021-11-19] MEDS: ATORVASTATIN 40 MG TAB PO SCH (20:18)
[2021-11-19] MEDS: EUCERIN CR 120 GM JAR EXT SCH (20:19)
[2021-11-19] MEDS: INSULIN GLARGINE SOLOSTAR 100 UNITS/ML 3 ML PEN SQ SCH (20:20)
[2021-11-20] MEDS: LEVOTHYROXINE SODIUM 75 MCG TABLET PO SCH (06:21)
[2021-11-20] MEDS: FAMOTIDINE 20 MG TAB PO SCH (08:37)
[2021-11-20] MEDS: lisinopril 5 MG TAB PO SCH (08:38)
[2021-11-20] MEDS: NICOTINE 21 MG/24 HR TDSY TD SCH (08:39)
[2021-11-20] MEDS: FLUTICASONE/VILANTEROL 100/25MCG 14 PUFFS/INHALER INH SCH (08:39)
[2021-11-20] MEDS: EUCERIN CR 120 GM JAR EXT SCH (08:40)
[2021-11-20] MEDS: ENOXAPARIN INJ 40 MG/0.4 ML SYR SQ SCH (08:41)
[2021-11-20] MEDS: METOPROLOL SUCC 50MG EXT REL TAB PO SCH (08:47)
[2021-11-20] MEDS: ASPIRIN 81 MG CHEW PO SCH (08:48)
[2021-11-20] MEDS: INSULIN ASPART PER UNIT SC SCH (09:04)
--- NOTE | 2021-11-20 11:13 | Discharge Summary ---
Date of Service November 20, 2021 Admission HPI Per Admitting Provider This is a 65-year-old male with past medical history significant for type 2 diabetes, hyperlipidemia, hypothyroidism, chronic nonspecific lung disease, history of sleep apnea, CAD, peripheral artery disease, severe aortic valve stenosis, chronic kidney disease stage III, history of secondary thrombocytopenia, history of tobacco abuse, history of CAD, status post CABG, presents with chest pain. The patient says he was lifting some firewood to his basement yesterday and then after that he had chest pain for half an hour. Then, today again he is having on and off chest pain and shortness of breath with exertion. He says he thinks he might have had some fever yesterday, that is broke. Denies any cough, no headache, no blurred visions, no earache, no runny nose, no sore throat, no nausea, no abdominal pain. Appetite is okay. Normal bowel and bladder movements. Resting comfortably and hemodynamically stable. Currently, no chest pain. The patient recently on 10/12/2021 had a cardiac catheterization for a plan for aortic valve surgery. At that time, cardiac cath showed severe bicuspid symptomatic aortic stenosis and cardiac catheterization showed patent SMITH to LAD and patent SVG to OM and patent SVG to RCA. There is plan for CAT scan coming week for surgery risk factor stratification. The patient is now currently in the ER, found to be COVID positive. The patient is not COVID vaccinated. Admission Exam Per Admitting Provider GENERAL: The patient is of moderate build, not in acute distress. VITAL SIGNS: Temperature 36.8, pulse 54, respiratory rate 15, blood pressure 116/79, oxygen 93% on room air. HEENT: Pupils equal, round and reactive to light. Oral mucosa moist. NECK: No JVD, no neck masses. CARDIOVASCULAR: S1 and S2 heard. Regular rate and rhythm. There is an ejection systolic murmur in the aortic area. RESPIRATORY SYSTEM: Normal AP diameter. No accessory muscle use. No wheezing, no crackles. ABDOMEN: Soft, bowel sounds present, nontender, no distention. CENTRAL NERVOUS SYSTEM: Cranial nerves II-XII grossly intact, nonfocal. EXTREMITIES: No edema, no erythema. Principal Diagnosis Symptomatic Severe Aortic Stenosis COVID 19 infection Discharge Exam Patient left AGAINST MEDICAL EXAM PRIOR TO EVALUATION TODAY Discharge Data Allergies Allergy/AdvReac Type Severity Reaction Status Date / Time aspirin AdvReac Intermediate platelets Verified 11/17/21 21:46 drop fexofenadine [From Karlie] AdvReac Intermediate NOSE BLEEDS Verified 11/17/21 21:46 Consultations 11/18/21 08:00 Consult Cardiology Routine Hospital Course (1) Symptomatic severe aortic stenosis with normal ejection fraction: (2) Chest pain, exertional: Chest pain currently resolved Related to symptomatic severe Patient was being evaluated outpatient for possible valvular repair However due to symptoms, Travel Writer discussed with Blanket Cutting Machine Operator evaluation at [facility] and patient was accepted for transfer pending bed availability Patient is frustrated that bed availability is taking time. I called [facility] transfer center this morning. They confirm patient is still on the transfer list but no available bed yet but will get him there as soon as there is a bed. Patient decided to leave. Signed out AMA I informed Travel Writer Dr Rodriguez to try to communicate with Blanket Cutting Machine Operator to try to facilitate outpatient workup/management for patient since he left AMA (3) COVID-19: +COVID test Does not appear symptomatic at this time No acute findings on XR On room air. No need for COVID specific therapies Patient had requested COVID antibody testing. I explained to patient that antibody testing is not indicated. He seem not to believe the COVID test (4) CKD (chronic kidney disease), stage III: (5) Tobacco use: Counselled extensively on smoking cessation (6) Diabetes mellitus, type II: A1c is 7.5 Continue home oral antidiabetics (7) Hx of CABG: (8) PVD (peripheral vascular disease): (9) CAD (coronary artery disease): Continue aspirin, atorvastatin Total Time Total Time Spent Total Time Spent (In Minutes): 25 Total Time Includes: Communication With Other Providers and Other Discharge Plan Discharge Items Patient Disposition: Transfer Acute Care Hospital Reason For Visit: CHEST PAIN Discharge Diagnosis: Chest pain Symptomatic severe aortic stenosis Activity: Resume your previous activity Non-emergency contact: Primary Care Provider and Travel Writer Call non-emergency contact if: you have any medication questions and your symptoms worsen Follow-up/Referrals: Mumtaz Quiroz DO [Primary Care Provider] - Diet: Carb Consistent or DM2 and Heart Healthy Addtl Attending Provider Instructions: Mr Hutchins. You came to the hospital for exertional chest pressure and shortness of breath. You were evaluated. This was deemed to be due to your severe aortic stenosis. You are being transferred to [facility] for balance wheel facer evaluation and management. You were also found to be positive for COVID 19 infection. It is important to quit smoking as we discussed. It was a pleasure taking care of you. Pending Studies at Discharge: No Stand-Alone Forms: My [facility] Skilled Items Patient informed of condition?: Yes DNR: No Discharge Level of Care: Other Communicable Disease: No Discharge Prognosis: Stable Lines: Peripheral IV Urinary Catheter: No Medications and DC Order Prescriptions: Continued atorvastatin [Lipitor] 80 mg tablet 80 mg PO HS RF: 0 Lantus U-100 Insulin 100 unit/mL solution 30 units subcut HS RF: 0 sildenafil 50 mg Tablet 25 mg PO DIRECTED PRN (Reason: Erectile Dysfunction) RF: 0 metoprolol succinate [Toprol XL] 50 mg tablet extended release 24 hr 50 mg PO DAILY RF: 0 levothyroxine [Synthroid] 75 mcg tablet 75 mcg PO DAILY RF: 0 aspirin [Aspirin Childrens] 81 mg Tablet,Chewable 81 mg PO DAILY RF: 0 lisinopril [Zestril] 5 mg tablet 5 mg PO DAILY RF: 0 Breo Ellipta 100-25 mcg/dose blister with device 1 puff Inhalation DAILY RF: 0 famotidine 20 mg tablet 20 mg PO BID RF: 0 metformin 500 mg tablet extended release 24 hr 1,000 mg PO BID RF: 0 Jardiance 25 mg tablet 25 mg PO DAILY RF: 0 Krames/Other Patient Handouts: Managing Type 2 Diabetes Admission Data Admit Date/Time: 11/17/21 23:43 Attending Provider: Hamida Delcid I. Admit Provider: Dada Vargas Primary Care Provider: Mumtaz Quiroz Other Providers: Joe Hood
== END 2021-11-20 09:28 | disposition short-term general hospital (02) ==
LOC: EDINP 20:38 → ED 20:38 → EDINP 11-18 02:42 → 2W 11-18 17:57